=== PATIENT | female | born 1940 | race Two or more races ===

== ENCOUNTER 2021-04-20 09:45 | Inpatient (IN) | payer OTHER ==
[~2021-04-20] VITALS: Ht 157.5 cm; Wt 52.2 kg
[2021-04-20] MEDS ORDERED: ALPRAZOLAM ODT2 MG PO (11:55)
[2021-04-20] MEDS ORDERED: VASOTEC20 M1 PO (11:55)
[2021-04-20] MEDS ORDERED: SYNTHROID50 MCG PO (11:55)
[2021-04-20] MEDS ORDERED: ZETIA10 MG PO (11:55)
[2021-04-25] MEDS ORDERED: ULTRACET PO (10:34)
[2021-04-25] MEDS ORDERED: INTEGRA F CAPS1 EACH PO (10:48)
== END 2021-04-25 12:00 | disposition home or self-care (01) | DRG 330 ==
LOC: SURG 04-22 05:15 → O/R 04-22 05:15 → SURH 04-22 07:00 → SURG 04-22 14:43
PROVIDERS: ADMIT Surgery; ATTEND Surgery
PROC: 07BC4ZZ Excision of Pelvis Lymphatic, Percutaneous Endoscopic Approach (ICD-10-PCS; 2021-04-22)
PROC: 0DTF4ZZ Resection of Right Large Intestine, Percutaneous Endoscopic Approach (ICD-10-PCS; principal; 2021-04-22 07:00)
DX: C18.2 Malignant neoplasm of ascending colon (principal); K62.5 Hemorrhage of anus and rectum; R59.0 Localized enlarged lymph nodes; I11.9 Hypertensive heart disease without heart failure; E03.8 Other specified hypothyroidism